=== PATIENT | male | born 1995 | race African-American/Black ===

== ENCOUNTER 2023-06-02 09:57 | Outpatient (CLI) | payer OTHER, SELFPAY ==
--- NOTE | ~2023-06-02 | US_ITS ---
US right upper quadrant INDICATION: Elevated liver enzymes PROCEDURE: Realtime right upper abdominal ultrasound. COMPARISON: No prior studies for comparison. FINDINGS: Pancreas is not well visualized due to bowel gas. Liver echotexture is increased, consiste nt with fatty infiltration. There is normal directional flow in the portal vein. The gallbladder is normal without stones, gallbladder wall thickening or pericholecystic fluid. Comm on bile duct measures 3 mm. No sonographic Hernandez's sign. IMPRESSION: 1: Hepatic steatosis. Reviewed, dictated and finalized at location A. IMPRESSION: 1: Hepatic steatosis.
== END 2023-06-02 09:58 | disposition home or self-care (01) ==
LOC: ANHIMG 10:02
PROVIDERS: PCP Emergency Medicine; Visit Provider Emergency Medicine
DX: K76.0 Fatty (change of) liver, not elsewhere classified (principal)
CPT/HCPCS: 76705

== ENCOUNTER 2023-08-24 20:20 | Emergency (ER) | payer OTHER, SELFPAY ==
--- NOTE | ~2023-08-24 | XR_ITS ---
XR chest 1V portable Ordering provider: Cr Magana MD History: 28 years Male with . Lower extremity edema . Comparison: None. FINDINGS: MEDIASTINUM: The cardiac silhouette is not enlarged. LUNGS: No effusion or pneumothorax. Prominent markings bilaterally. Minimal anterolisthesis changes a re also seen. OTHER: No free air under the diaphragm. IMPRESSION: Prominent markings bilaterally with interstitial changes. Pneumonitis is possible. Edema is less like ly Reviewed, dictated and finalized at location A. IMPRESSION: Prominent markings bilaterally with interstitial changes. Pneumonitis is possib le. Edema is less likely
[2023-08-24 20:47] VITALS: BP 183/115; PULSE 97; RESP 25; TEMP 37.1; O2SAT 100
--- NOTE | 2023-08-24 21:15 | ED.GENADULT ---
HPI - General Adult General Chief complaint: Extremity Problem,Nontraumatic Stated complaint: leg swelling Time Seen by Provider: 08/24/23 20:44 History of Present Illness HPI narrative: this is a 28-year-old male with developmental delay presenting with lower extremity edema. Over last week patient has had worsening edema of his lower extremities. The patient is currently unemployed and his mom says he does nothing within a chair and play video games all day. He does not do much walking. The swelling appears to be worse at the end day. He is also on amlodipine. She had spoken to his primary care physician about it and was told that if she felt the swelling was getting worse go to the ED. The patient is denying fevers chills chest pain difficulty breathing abdominal pain or any other complaints. Related Data Home Medications Medication Instructions Recorded Confirmed amlodipine 10 mg tablet 10 mg PO DAILY 08/24/23 08/24/23 Allergies Allergy/AdvReac Type Severity Reaction Status Date / Time No Known Allergies Allergy Unverified 08/24/23 20:53 [facility] Social History Social History Smoking status: Never smoker Alcohol intake: never Exam Narrative: APPEARANCE: No apparent distress. resting comfortably Head: atraumatic. EYES: EOMI, NOSE: Atraumatic NECK: Trachea midline RESPIRATORY: No increased rate of breathing , clear to auscultation CARDIOVASCULAR: RRR, Plus two pitting edema to mid krishnamurthy. Pulses intact. Cap refill less than 2 seconds. ABDOMINAL: Non-distended MUSCULOSKELETAl: No obvious deformities NEURO: Alert. Moving 4/4 extremities SKIN:: Warm, dry. Normal color PSYCHIATRIC: Normal affect Course Vital Signs Vital signs: Vital Signs Temperature 98.8 F 08/24/23 20:47 Pulse Rate 97 08/24/23 20:47 Respiratory Rate 25 H 08/24/23 20:47 Blood Pressure 183/115 H 08/24/23 20:47 Pulse Oximetry 100 08/24/23 20:47 Oxygen Delivery Room Air 08/24/23 20:47 Temperature 98.8 F 08/24/23 20:47 Pulse Rate 97 08/24/23 20:47 Respiratory Rate 25 H 08/24/23 20:47 Blood Pressure 183/115 H 08/24/23 20:47 Pulse Oximetry 100 08/24/23 20:47 Oxygen Delivery Room Air 08/24/23 20:47 Medical Decision Making MDM Narrative Medical decision making narrative: -Course: 28-year-old male presenting with 1 week of lower extremity edema. Patient has multiple reasons to have dependent edema including sitting in a chair all day with his feet down and amlodipine. His mother has noted that the edema has decreased in the short time he's been laying in our hospital bed. D-dimer negative. BNP normal. patient will be discharged with instructions to use compression socks and be his feet night help with her dependent edema. -DDX includes but is not limited to: Dependent edema, DVT heart failure kidney failure -Co-morbidities complicating care: developmental delay hypertension -Hx from independent Sources: mother bedside -Independent interpretation of studies: labs reviewed -Shared decision making / Disposition: discharge Vital Signs Vital Signs: Vital Signs Temperature 98.8 F 08/24/23 20:47 Pulse Rate 97 08/24/23 20:47 Respiratory Rate 25 H 08/24/23 20:47 Blood Pressure 183/115 H 08/24/23 20:47 Pulse Oximetry 100 08/24/23 20:47 Oxygen Delivery Room Air 08/24/23 20:47 Temperature 98.8 F 08/24/23 20:47 Pulse Rate 97 08/24/23 20:47 Respiratory Rate 25 H 08/24/23 20:47 Blood Pressure 183/115 H 08/24/23 20:47 Pulse Oximetry 100 08/24/23 20:47 Oxygen Delivery Room Air 08/24/23 20:47 Lab Data 08/24/23 21:38 08/24/23 21:38 Labs: Lab Results 08/24/23 Range/Units 21:38 WBC 8.2 (4.5-10.0) K/mm3 RBC 4.38 L (4.6-6.20) M/mm3 Hgb 15.5 (14.0-18.0) g/dL Hct 42.2 (42.0-52.0) % MCV 96.3 (80-100) fl MCH 35.4 H (26-34) pg MCHC 36.7 H (32-36) g/dl RDW 11.5 (11.5-14.5) % Plt Coun
[2023-08-24 21:49] LABS: Basophils Percent Auto 0.4 % (0.2-1.2); Eosinophils Absolute Auto 0.2 K/mm3 (0-0.3); Eosinophils Percent Auto 2.3 % (0-4.4); Hematocrit 42.2 % (42.0-52.0); Hemoglobin 15.5 g/dL (14.0-18.0); Immature Granulocyte Absolute 0.03 K/mm3 (0.00-0.031); Immature Granulocyte Percent A 0.4 % (0-0.5); Lymphocytes Absolute Auto 2.85 K/mm3 (0.9-3.2); Lymphocytes Percent Auto 34.6 % (18.3-44.2); Mean Corpuscular HGB Conc 36.7 g/dl (32-36); Mean Corpuscular Hemoglobin 35.4 pg (26-34); Mean Corpuscular Volume 96.3 fl (80-100); Mean Platelet Volume 9.5 fl (7.4-10.4); Monocytes Absolute Auto 0.5 K/mm3 (0.1-0.6); Monocytes Percent Auto 6.1 % (2.6-8.5); Neutrophils Absolute Auto 4.6 K/mm3 (1.3-6.7); Neutrophils Percent Auto 56.2 % (45.5-73.1); Platelet Count Result 307 k/mm3 (150-375); Red Blood Count 4.38 M/mm3 (4.6-6.20); Red Cell Distribution Width 11.5 % (11.5-14.5); White Blood Count 8.2 K/mm3 (4.5-10.0)
[2023-08-24 22:04] LABS: D Dimer 0.31 ug/mL (<0.48)
[2023-08-24 22:05] LABS: Alanine Aminotransferase 56 U/L (6-50); Albumin Level 4.9 g/dL (3.5-5.1); Alkaline Phosphatase 81 U/L (38-126); Anion Gap 10 mmol/L (4-12); Aspartate Amino Transferase 48 U/L (17-59); Blood Urea Nitrogen 19 mg/dL (9-20); Calcium 9.2 mg/dL (8.4-10.2); Carbon Dioxide 25 mmol/L (22-30); Chloride 103 mmol/L (98-107); Estimated CRCL calculation 138 ml/min; Estimated Glomerular Filt Rate > 60; Glucose 106 mg/dL (65-110); Potassium 3.8 mmol/L (3.4-5.0); Sodium 138 mmol/L (137-145)
[2023-08-24 22:14] LABS: NT Pro B Type Natriuretic Pept < 20 pg/mL (19.9-100)
== END 2023-08-24 22:56 | disposition home or self-care (01) ==
PROVIDERS: Emergency Provider Emergency Medicine; PCP Emergency Medicine
DX: R60.0 Localized edema (principal); I10 Essential (primary) hypertension; R62.50 Unspecified lack of expected normal physiological development in childhood; Z79.899 Other long term (current) drug therapy
CPT/HCPCS: 36415; 71045; 80053; 83880; 85025; 85380; 99283

== ENCOUNTER 2023-09-07 09:53 | Outpatient (CLI) | payer OTHER, SELFPAY ==
--- NOTE | ~2023-09-07 | XR_ITS ---
Clinical Indication: Pneumonitis PA and lateral views of the chest: Comparison: 08/24/2023 Findings: Questional subtle focal haziness left lung base. Right lung clear. Cardiomediastinal silho uette is within normal limits. Bones and soft tissues are unremarkable. Impression: Question of focal subtle haziness left lung base. Reviewed, dictated and finalized at location . Impression: Question of focal subtle haziness left lung base.
== END 2023-09-07 09:54 | disposition home or self-care (01) ==
LOC: ANHIMG 09:58
PROVIDERS: PCP Emergency Medicine; Visit Provider Emergency Medicine
DX: J98.4 Other disorders of lung (principal)
CPT/HCPCS: 71046